=== PATIENT | female | born 1945 | race Caucasian/White ===

== ENCOUNTER → 2021-08-21 | Outpatient (CLI) | payer MEDICARE | LOC: RAD 10:00 | PROVIDERS: ATTEND Internal Medicine | DX: Z12.31 Encounter for screening mammogram for malignant neoplasm of breast (principal) | CPT/HCPCS: 77063; 77067 ==

== ENCOUNTER → 2022-08-22 | Outpatient (CLI) | payer MEDICARE ==
--- NOTE | 2022-08-25 10:17 | Diagnostic Imaging Report ---
EXAMINATION: 3D bilateral screening mammogram with CAD. INDICATION: Screening. COMPARISON: This study is compared to the prior exams of 08/21/2021, 07/10/2020, and 06/24/2019. PERSONAL HISTORY: The patient has had a prior lumpectomy for carcinoma in 2012. At this time, there are no current complaints. FINDINGS: The post surgical and post therapeutic changes involving the right breast seen on the prior studies are again evident and no different. There is no evidence for recurrent malignancy. The fibroglandular tissue in both breasts is heterogeneously dense. When compared to the prior studies, there has been no significant change. There is no primary or secondary sign of malignancy noted. IMPRESSION: The post surgical and post therapeutic changes involving the right breast appear stable. There is no evidence for malignancy. ACR BI-RADS Category 1: Negative. Result letter will be mailed to the patient. Note: At least 10% of breast cancer is not imaged by mammography. Dictated by: Dictated on workstation # [id number]
== END ==
LOC: RAD 09:47
PROVIDERS: ATTEND Internal Medicine
DX: Z12.31 Encounter for screening mammogram for malignant neoplasm of breast (principal); Z98.890 Other specified postprocedural states
CPT/HCPCS: 77063; 77067

== ENCOUNTER 2022-09-03 08:57 | Emergency (ER) | payer MEDICARE ==
[~2022-09-03] VITALS: Ht 157 cm; Wt 92.0 kg
[2022-09-03 09:49] LABS: BASOPHILS # (AUTO) 0.1 10^3/uL (0.0-0.1); BASOPHILS % (AUTO) 1 % (0-10); EOSINOPHILS # (AUTO) 0.2 10^3/uL (0.0-0.3); EOSINOPHILS % (AUTO) 2 % (0-10); LYMPHOCYTES # (AUTO) 2.2 10^3/uL (1.0-4.0); LYMPHOCYTES % (AUTO) 31 % (12-44); MEAN CORPUSCULAR HGB CONC 33 g/dL (32-36); MEAN CORPUSCULAR VOLUME 89 fL (80-99); MEAN PLATELET VOLUME 10.3 fL (9.0-12.2); MONOCYTES # (AUTO) 0.7 10^3/uL (0.0-1.0); MONOCYTES % (AUTO) 10 % (0-12); NEUTROPHILS # (AUTO) 3.8 10^3/uL (1.8-7.8); NEUTROPHILS % (AUTO) 55 % (42-75)
--- NOTE | 2022-09-03 09:49 | Diagnostic Imaging Report ---
CLINICAL INDICATION: Patient chest pain. EXAM: Portable chest x-ray upright view. COMPARISON: None. FINDINGS: Lungs/pleura: Lungs are clear. There is no pneumothorax. There is no pleural effusion. Mediastinum: Unremarkable. Pulmonary vasculature: Unremarkable. Heart: Unremarkable. Bones/extrathoracic soft tissue: Unremarkable. IMPRESSION: There is no radiographic evidence of acute cardiopulmonary process. Dictated by: Dictated on workstation # [id number]
[2022-09-03 09:57] LABS: HEMATOCRIT 36 % (35-52); HEMOGLOBIN 12.1 g/dL (11.5-16.0); MEAN CORPUSCULAR HEMOGLOBIN 30 pg (25-34); PLATELET COUNT 77 10^3/uL (130-400); WHITE BLOOD COUNT 7.7 10^3/uL (4.3-11.0)
[2022-09-03 09:58] LABS: ALBUMIN 4.3 GM/DL (3.2-4.5)
[2022-09-03 09:59] LABS: POTASSIUM 4.5 MMOL/L (3.6-5.0)
[2022-09-03 10:00] LABS: CALCIUM 9.4 MG/DL (8.5-10.1)
[2022-09-03 10:03] LABS: BILIRUBIN,TOTAL 0.3 MG/DL (0.1-1.0)
[2022-09-03 10:05] LABS: CREATININE SERUM 1.29 MG/DL (0.60-1.30); INR 0.9 (0.8-1.4); PROTHROMBIN TIME PATIENT 12.5 SEC (12.2-14.7); SMEAR SCAN COMMENT YES
--- NOTE | 2022-09-03 10:41 | ED Chest Pain ---
General Chief Complaint: Upper Extremity Stated Complaint: LT ARM PAIN | Nursing Triage Note: Patient presented to the ER this morning with c/o of left arm pain. She denies pervious injury and state that she has just not felt right today. She advised intermittent pain in her left upper chest but states her blood pressure has been high. Source: patient Exam Limitations: no limitations History of Present Illness Date Seen by Provider: Sep 03, 2022 Time Seen by Provider: 09:15 Initial Comments This 76-year-old woman presents to the emergency room with complaints of left axillary pain upon waking this morning around 0500. She also noted her heart rate to be fast by her interpretation at around 100 bpm. She was also hypertensive. She took her blood pressure medications this morning. She describes the pain in the axilla as a tightness and it has since resolved without any treatment. She reports a vague feeling of just "not feeling normal" this morning. Her primary care provider is Dr. Hensley. She has no history of cardiac disease aside from hypertension which has been treated for about a year. Allergies and Home Medications Allergies Coded Allergies: Sulfa (Sulfonamide Antibiotics) (Unverified Allergy, Unknown, 09/03/22) Patient Home Medication List Home Medication List Reviewed: Yes Review of Systems Review of Systems Constitutional: no symptoms reported EENTM: No Symptoms Reported Respiratory: No Symptoms Reported Cardiovascular: See HPI Gastrointestinal: No Symptoms Reported Genitourinary: No Symptoms Reported Musculoskeletal: see HPI Skin: no symptoms reported Psychiatric/Neurological: No Symptoms Reported Endocrine: No Symptoms Reported Past Nxqpyto-Uecljs-Lkeszf Hx Patient Social History Tobacco Use?: No Substance use?: No Alcohol Use?: No Past Medical History Surgery/Hospitalization HX: HTN, previous hx. of breast CA Surgeries: Yes Breast (Right lumpectomy) Respiratory: No Cardiac: Yes Hypertension Neurological: No : No Reproductive Disorders: No Genitourinary: No Gastrointestinal: Yes Gastroesophageal Reflux Musculoskeletal: No Endocrine: Yes Hypothyroidsim HEENT: No Cancer: No Psychosocial: No Physical Exam Vital Signs Vital Signs - First Documented 09/03/22 09/03/22 09:16 09:43 Temp 36.4 Pulse 91 Resp 18 B/P (MAP) 155/87 (109) Pulse Ox 99 O2 Delivery Room Air Capillary Refill : Less Than 3 Seconds Height, Weight, BMI Height: '" Weight: lbs. oz. kg; 37.00 BMI Method: General Appearance: No Apparent Distress, WD/WN HEENT: PERRL/EOMI, Normal ENT Inspection Neck: Normal Inspection Respiratory: Chest Non Tender, Lungs Clear, Normal Breath Sounds, No Accessory Muscle Use Cardiovascular: Regular Rate, Rhythm, No Edema, No Murmur, Normal Peripheral Pulses Gastrointestinal: Non Tender, Soft Extremity: Normal Inspection, Non Tender, No Pedal Edema Neurologic/Psychiatric: Alert, Oriented x3, No Motor/Sensory Deficits, Normal Mood/Affect Skin: Normal Color, Warm/Dry Progress/Results/Core Measures Results/Orders Lab Results Laboratory Tests Test 09/03/22 09:37 09/03/22 11:40 Range/Units White Blood Count 7.7 4.3-11.0 10^3/uL Red Blood Count 4.09 3.80-5.11 10^6/uL Hemoglobin 12.1 11.5-16.0 g/dL Hematocrit 36 35-52 % Mean Corpuscular Volume 89 80-99 fL Mean Corpuscular Hemoglobin 30 25-34 pg Mean Corpuscular Hemoglobin Concent 33 32-36 g/dL Red Cell Distribution Width 12.3 10.0-14.5 % Platelet Count 77 L 130-400 10^3/uL Mean Platelet Volume 10.3 9.0-12.2 fL Immature Granulocyte % (Auto) 0 % Neutrophils (%) (Auto) 55 42-75 % Lymphocytes (%) (Auto) 31 12-44 % Monocytes (%) (Auto) 10 0-12 % Eosinophils (%) (Auto) 2 0-10 % Basophils (%) (Auto) 1 0-10 % Neutrophils # (Auto) 3.8 1.8-7.8 10^3/uL Lymphocytes # (Auto) 2.2 1.0-4.0 10^3/uL Monocytes # (Auto) 0.7 0.0-1.0 10^3/uL Eosinophils # (Auto) 0.2 0.0-0.3 10^3/uL Basophils # (Auto) 0.1 0.0-0.1 10^3/uL Immature Granulocyte # (Auto) 0.0 0.0-0.1 10^3/uL Prothrombin Time 12.5 12.2-14.7 SEC INR Comment 0.9 0.8-1.4 Activated Partial Thromboplast Time 24 24-35 SEC Sodium Level 139 135-145 MMOL/L Potassium Level 4.5 3.6-5.0 MMOL/L Chloride Level 109 H 98-107 MMOL/L Carbon Dioxide Level 19 L 21-32 MMOL/L Anion Gap 11 5-14 MMOL/L Blood Urea Nitrogen 20 H 7-18 MG/DL Creatinine 1.29 0.60-1.30 MG/DL Estimat Glomerular Filtration Rate 43 BUN/Creatinine Ratio 16 Glucose Level 91 70-105 MG/DL Calcium Level 9.4 8.5-10.1 MG/DL Corrected Calcium 9.2 8.5-10.1 MG/DL Magnesium Level 2.0 1.6-2.4 MG/DL Total Bilirubin 0.3 0.1-1.0 MG/DL Aspartate Amino Transf (AST/SGOT) 36 H 5-34 U/L Alanine Aminotransferase (ALT/SGPT) 32 0-55 U/L Alkaline Phosphatase 58 40-136 U/L Myoglobin 65.0 10.0-92.0 NG/ML Troponin I < 0.028 < 0.028 <0.028 NG/ML Total Protein 8.0 6.4-8.2 GM/DL Albumin 4.3 3.2-4.5 GM/DL Smear Scan YES My Orders Orders - VERONICA GILL MD Cbc With Automated Diff (09/03/22 09:27) Magnesium (09/03/22 09:27) Chest 1 View, Ap/Pa Only (09/03/22:27) Ekg Tracing (09/03/22:27) Comprehensive Metabolic Panel (09/03/22:) Myoglobin Serum (09/03/22:27) Protime With Inr (09/03/22:) Partial Thromboplastin Time (09/03/22:27) O2 (09/03/22:27) Monitor-Rhythm Ecg Trace Only (09/03/22:) Ed Iv/Invasive Line Start (09/03/22 09:27) Troponin I [place] (09/03/22 09:27) Troponin I [place] (09/03/22 11:30) Vital Signs/I&O 09/03/22 09/03/22 09/03/22 09:16 09:43 12:48 Temp 36.4 Pulse 91 98 Resp 18 16 B/P (MAP) 155/87 (109) 152/96 Pulse Ox 99 99 99 O2 Delivery Room Air Room Air Room Air Blood Pressure Mean: 109 Progress Progress Note #1: Time: 10:39 Progress Note Initial work-up including CBC, CMP, magnesium, troponin, chest x-ray, and EKG was all reviewed by me and no significant abnormalities were appreciated. Repeat troponin is pending. Patient's pain had resolved by the time of her arrival to the ER. Progress Note #2: Progress Note Patient remained asymptomatic and repeat troponin was negative. Patient was encouraged to follow-up with her primary care provider and/or director retirement for further evaluation. See discharge instructions for further discussion. Initial ECG Impression Date: Sep 03, 2022 Initial ECG Impression Time: 09:16 Initial ECG Rate: 87 Initial ECG Rhythm: Normal Sinus Initial ECG Intervals: Normal Initial ECG Impression: Normal Comment Normal sinus rhythm with no ST elevation or depression. No abnormal intervals or axis deviation. Diagnostic Imaging Diagonstic Imaging: Xray Plain Films/CT/US/NM/MRI: chest Comments Chest x-ray viewed by me and report reviewed. See report below: NAME: COLBY JONES [facility] REC#: [id number] PT STATUS: REG ER : 1945 PHYSICIAN: VERONICA GILL MD ADMIT DATE: 09/03/22/ER Draft Date of Exam:09/03/22 CHEST 1 VIEW, AP/PA ONLY CLINICAL INDICATION: Patient chest pain. EXAM: Portable chest x-ray upright view. COMPARISON: None. FINDINGS: Lungs/pleura: Lungs are clear. There is no pneumothorax. There is no pleural effusion. Mediastinum: Unremarkable. Pulmonary vasculature: Unremarkable. Heart: Unremarkable. Bones/extrathoracic soft tissue: Unremarkable. IMPRESSION: There is no radiographic evidence of acute cardiopulmonary process. Dictated on workstation # [id number] Dict: 09/03/2247 Trans: 09/03/2248 [id number] Interpreted by: PRATIK BRANCH MD Departure Impression Primary Impression: Atypical chest pain Disposition: HOME, SELF-CARE Condition: Improved Departure-Patient Inst. Referrals: HENSLEY,BERTHA DO (PCP/Family) Primary Care Physician Patient Instructions: Chest Pain, Adult ED Add. Discharge Instructions: Continue your medications as previously prescribed. Follow-up with your primary care provider sometime in the near future to discuss your episode of chest pain. If you continue to have episodes of rapid heart rate, discuss this with your primary care provider. Also be sure your thyroid hormones are being monitored and discuss thyroid hormone testing with your doctor. Return to the ER if you have worsening or recurrent symptoms or develop new symptoms such as shortness of breath, lightheadedness, etc. All discharge instructions reviewed with patient and/or family. Voiced understanding. Copy Copies To 1: BERTHA HENSLEY JOSHUA T MD Sep 03, 2022 10:41
[2022-09-03 12:48] VITALS: BP 152/96
== END 2022-09-03 12:49 | disposition home or self-care (01) ==
LOC: EDUNIT# 08:57 → ER 08:59
DX: R07.89 Other chest pain (principal); I10 Essential (primary) hypertension; Z79.899 Other long term (current) drug therapy; Z28.310 Unvaccinated for COVID-19
CPT/HCPCS: 36415; 71045; 80053; 83735; 83874; 84484; 85025; 85610; 85730; 93005